=== PATIENT | female | born 1945 | race Caucasian/White ===

== ENCOUNTER 2019-07-23 08:56 | Outpatient (CLI) | payer MEDICARE ==
--- NOTE | 2019-07-23 12:20 | MRI ---
LUMBAR SPINE MRI WITHOUT IV CONTRAST: Date: 07/23/19 HISTORY: Lumbar stenosis with neurogenic claudication, sciatic pain, primarily right leg. COMPARISON: 09/05/16. FINDINGS: Generalized disc desiccation changes, and ligament and facet hypertrophic changes. Evidence for postsurgical changes at L3-L4. Visualized thoracic spine and cord appear unremarkable. At T12-L1, there is no significant central canal or lateral recess or foraminal stenosis. At L1-L2, there is mild disc bulging with ligament and facet hypertrophic changes, with very mild lat eral recess narrowing. At L2-L3, there is moderate central canal and left lateral recess stenosis with moderate left foramin al stenosis. At L3-L4, there is a Grade I anterolisthesis with severe central canal, lateral recess, and bilateral foraminal stenosis, possibly very slightly progressive from the prior study. Disc bulging at L4-L5 with moderate right foraminal stenosis and mild left foraminal stenosis. At L5-S1, there is a small annular fissure, without associated stenosis. The previously noted abnormal marrow signal changes at L3-L4 have resolved. Visualized SI joints demonstrate mild degenerative changes, but no evidence for acute sacroiliitis. IMPRESSION: 1. Anterolisthesis of L3 on L4. 2. Postop changes at L3-L4. 3. Severe central canal, lateral recess, and foraminal stenosis bilaterally at L3-L4. 4. Variable severity multilevel canal, lateral recess, and foraminal stenosis at other levels as abo ve. 5. The amount of stenosis at the L3-L4 level appears minimally progressive from the prior study. POS: [facility]
== END 2019-07-23 08:57 | disposition home or self-care (01) ==
LOC: MRI 08:56
PROVIDERS: ATTEND Anesthesiology Pain Medicine
DX: M48.062 Spinal stenosis, lumbar region with neurogenic claudication (principal); M43.16 Spondylolisthesis, lumbar region; Z98.890 Other specified postprocedural states
CPT/HCPCS: 36415; 72148; 80053; 80061; 84443; 85025; 85652; 86140

== ENCOUNTER 2020-01-18 10:52 | Outpatient (CLI) | payer MEDICARE, OTHER ==
--- NOTE | 2020-01-18 12:11 | MRI ---
MRI Lower Ext Jt Rt knee WO Con HISTORY: Knee pain COMPARISON: None. FINDINGS: The anterior as well as posterior cruciate ligaments are intact. On the medial side the posterior horn is very diminutive in size there is a displaced flap type tear involving the body of the meniscus with meniscal tissue displaced into the meniscotibial recess. The diminutive size of the posterior horn is probably related to the tear extending into the posterio r horn region. On the lateral side a more horizontally oriented tear is seen extending into a truncated body of the meniscus again with a very diminutive appearance to the posterior horn, I do not appreciate any displaced fragment of meniscus in these changes and therefore this may largely be chronic in nature. There is slight prominence to the root region of the posterior horn of lateral meniscus possibly there are some displaced fragment extending into this region. The medial as well as lateral collateral ligaments and iliotibial band regions are normal. There is grade IV chondromalacia changes involving the medial facet with lesser changes involving the lateral facet of the patella. Medial lateral patellar retinaculum and quadriceps and patellar tendons are normal. Kimball's type cyst is present.. IMPRESSION: 1. Displaced flap type tear involving the posterior horn and body region of the medial meniscus. 2. More chronic appearing tear involving the lateral meniscus. There is a horizontally orientated tea r in a truncated body of the meniscus. The posterior horn is very diminutive in size, it is difficult to show any definite displaced meniscal fragment although it is possible that there is a di splaced fragment displaced into the region of the root of the posterior horn of the lateral meniscus.
== END 2020-01-18 10:53 | disposition home or self-care (01) ==
LOC: SCSMRI 10:52
PROVIDERS: ATTEND Orthopaedic Surgery
DX: M25.561 Pain in right knee (principal); S83.241A Other tear of medial meniscus, current injury, right knee, initial encounter; S83.281A Other tear of lateral meniscus, current injury, right knee, initial encounter

== ENCOUNTER 2020-07-27 15:30 | Outpatient (CLI) | payer MEDICARE, OTHER ==
--- NOTE | 2020-07-28 09:30 | RAD ---
EXAM: CHEST TWO VIEWS: 07/27/20 HISTORY: Hypertension. FINDINGS: There is some very mild increased linear and interstitial markings noted bilaterally. No confluent pn eumonia or overt edema. Heart size is normal. Mild atherosclerosis of the aorta. IMPRESSION: 1. Mild chronic changes. No confluent pneumonia, overt edema, pleural effusion, or other acute process. 2. Atherosclerosis of the aorta. POS: [facility]
== END 2020-07-27 15:31 | disposition home or self-care (01) ==
LOC: BICRAD 15:30
PROVIDERS: ATTEND Nurse Practitioner Family
DX: I10 Essential (primary) hypertension (principal); I70.0 Atherosclerosis of aorta
CPT/HCPCS: 71046

== ENCOUNTER 2020-08-24 07:49 | Outpatient (CLI) | payer MEDICARE, OTHER ==
--- NOTE | 2020-08-24 08:58 | MRI ---
MRI LUMBAR SPINE NONCONTRAST: HISTORY: Lumbar radiculopathy. Back pain. Weakness in both legs, x1-2 months. COMPARISON: 07/23/2019. FINDINGS: There is mild heterogeneity on the T1-weighted sequence suggesting a component of senescent change. T here are type II Modic changes at L2-L3. There is type I and type II Modic change at the L1-L2 level. No significant STIR hyperintensity to suggest vertebral body edema from fracture. No MR eviden ce of ligamentous injury. There is appropriate signal intensity of the visualized paraspinal muscles and solid organs. Conus medullaris terminates at the T12-L1 disc space. Spondylolisthesis: 7.8 mm of anterolisthesis of L4 3 upon L4, previously measuring 7.2 mm. There are associated bilatera l L3 pars defects. L4-L5: 2.9 mm of anterolisthesis, previously measuring 2.8 mm of anterolisthesis. L1-L2: 2.9 mm of retrolisthesis, previously 2.2 mm of retrolisthesis. T12-L1:Adequate disc hydration. No posterior disc abnormality. No significant central canal stenosis. Patent bilateral neural foramina. L1-L2:Disc desiccation with mild loss of disc space height. Broad-based disc bulge, ligament flavum t hickening and facet hypertrophy result in mild central canal stenosis. Mild to moderate bilateral neural foraminal narrowing. No significant change in the degree of central canal stenosis or degree o f neural foraminal narrowing. L2-L3:Desiccation with severe loss of disc space height, similar to the previous examination. Broad-b ased disc bulge and posterior element hypertrophy results in mild central canal stenosis. Mild right and moderate left neural foraminal narrowing. L3-L4:Desiccation with severe loss of disc space height. Moderate central canal stenosis, unchanged. Severe bilateral foraminal narrowing, similar to the previous exam. L4-L5:Desiccation with severe loss of disc space height. Broad-based disc bulge. Posterior laminectom y defect. No significant central canal stenosis. Moderate bilateral facet hypertrophy. Moderate right and mild left neural foraminal narrowing. L5-S1:Disc desiccation without significant loss of disc space height. No significant central canal st enosis. Long-standing T2 and STIR hyperintensity involving the posterior annulus is noted. Patent bilateral neural foramina. IMPRESSION: 1. Slight progression of spondylolisthesis at L1-L2, L3-L4 and L4-L5. Redemonstration of bilateral L3 pars defects. 2. Moderate central canal stenosis at L3-L4, unchanged. Severe bilateral neural foraminal narrowing a t L3-L4, unchanged. 3. Additional multilevel degenerative changes of the lumbar spine as described above. Transcribed Date/Time: 08/24/2020 9:41 AM
--- NOTE | 2020-08-24 12:14 | MRI ---
MRI OF THE PELVIS WITH AND WITHOUT CONTRAST: Date: 08/24/2020 INDICATION: History of ischial bursitis. TECHNIQUE: Multiplanar, multisequence MR images were obtained of the pelvis with and without contrast following 16 mL of MultiHance. FINDINGS: No definite abnormal fluid collection is seen overlying the ischium. There is mild tendinosis of the hamstring origins. There is mild trochanteric bursitis bilaterally. No iliopsoas bursitis is evident. No muscular atrophy is evident. No enlarged lymph nodes are present. No free fluid is evident in the pelvis. No acute fracture is demonstrated. There is mild degenerative change of the SI joints. 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 The uterus is surgically absent. IMPRESSION: 1. Mild tendinosis of the hamstring origins bilaterally. 2. Mild trochanteric bursitis bilaterally. 3. No iliopsoas bursitis demonstrated. POS: [facility]
[2020-08-24] MEDS ORDERED: Magnevist 469MG/ML 20 ML VIAL ONE (16:28)
== END 2020-08-24 07:50 | disposition home or self-care (01) ==
LOC: BICMRI 07:49
PROVIDERS: ATTEND Specialist
DX: M47.26 Other spondylosis with radiculopathy, lumbar region (principal); M70.70 Other bursitis of hip, unspecified hip; M70.62 Trochanteric bursitis, left hip; M70.61 Trochanteric bursitis, right hip; M76.899 Other specified enthesopathies of unspecified lower limb, excluding foot; M67.952 Unspecified disorder of synovium and tendon, left thigh; M67.951 Unspecified disorder of synovium and tendon, right thigh; M43.16 Spondylolisthesis, lumbar region; M48.061 Spinal stenosis, lumbar region without neurogenic claudication
CPT/HCPCS: 72148; 72197; A9579

== ENCOUNTER 2020-11-15 12:51 | Outpatient (CLI) | payer MEDICARE, OTHER ==
--- NOTE | 2020-11-15 13:33 | ULT ---
EXAM: Right lower extremity venous Doppler HISTORY: Right leg pain. FINDINGS: Grayscale, color-flow, Doppler evaluation, spectral analysis of the right lower extremity venous stru ctures is performed with 2-D imaging. The right common femoral, superficial femoral, popliteal, posterior tibial, proximal greater saphenous and profunda femoral veins are imaged. There is normal luminal compressibility, flow, and augmentation in the visualized deep venous structu res of the right lower extremity. There is an oblong shaped anechoic structure seen in the popliteal fossa which measures 4.1 cm x 1.9 cm x 1.8 cm. Small amount of echogenic material is seen likely due to small amount of debris within presumed Kimball's cyst. Color flow evaluation does not demonstrate flow in this structure. IMPRESSION: 1. No evidence of a deep vein thrombosis in the visualized deep venous structures right lower extremi ty. 2. 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
--- NOTE | 2020-11-15 14:51 | RAD ---
EXAM: 2 views of the right tibia/fibula HISTORY: Leg pain COMPARISON: None FINDINGS: There is no evidence of acute fracture or dislocation. Mild pretibial soft tissue swelling is seen. No degenerative changes are seen in the ankle. Mild degenerative changes are seen in the knee. IMPRESSION: No evidence of acute osseous abnormality.
--- NOTE | 2020-11-15 15:15 | MRI ---
MR OF THE RIGHT KNEE WITHOUT CONTRAST INDICATION: Severe right knee pain TECHNIQUE: Axial and coronal PD fat sat, sagittal T2 fat sat, sagittal PD turbo spin echo and T1 landy nal images were obtained of the right knee. COMPARISON: MR of the right knee dated January 18, 2020 FINDINGS: Joint effusion: Moderate to large Semimembranosus-medial gastrocnemius popliteal cyst: Moderate to large Ligaments: There is some mild intrinsic degeneration involving the ACL. PCL, MCL and LCLC are intact. Extensor mechanism: Intact. Menisci: The horizontally oriented radial tear involving the posterior horn and body of the medial me niscus with a displaced meniscal flap protruding from the inferior margin of the medial meniscal body into the inferior aspect of the medial gutter is again seen. The extent of the tear appears slig htly more pronounced than on the prior exam. There has been interval development of a full-thickness obliquely oriented radial tear involving the posterior horn and posterior body of the lateral meniscus with a displaced flap extending into the superior aspect of the lateral gutter from the anterior margin of the lateral meniscal body. There is extrusion of the lateral meniscus. Th is is best seen on image 7 of series 8 and image 11 of series 9. Articular cartilage: Since the comparison examination there is been progressive full-thickness articu lar cartilage thinning involving the lateral tibial plateau and lateral femoral condyle with subchondral sclerosis and subchondral cyst formation involving the lateral tibial plateau. There is a subchondral sclerosis are also seen involving the lateral and posterior margin of the lateral femoral condyle. There is reactive marrow edema of the lateral femoral condyle and lateral tibial osmin teau. Small marginal osteophytes affecting the medial femoral tibial and patellofemoral compartments. There is moderate to severe multifocal chondrosis involving the patellofemoral compartm ent. There is diffuse moderate narrowing of the articular cartilage of the medial femoral tibial joint compartment. Osseous structures: Mild marrow edema seen involving the lateral femoral tibial and lateral tibial pl ateau. Small amount of reactive edema seen underlying the tibial spines. Popliteus and IT band: Normal. IMPRESSION: 1. Interval development of a full-thickness radial tear involving the posterior horn and posterior roger dy of the lateral meniscus with a displaced meniscal flap extending superiorly into the lateral gutter from the anterior margin of the lateral meniscal body. 2. Worsening horizontally oriented radial tear involving the posterior horn and body of the medial me niscus with a displaced meniscal flap protruding into the inferior margin of the medial gutter. 3. Accelerated [id number] osteoarthrosis, most severely affecting the lateral femoral tibial co mpartment where there has been interval development of subchondral sclerosis and subchondral cyst formation involving the lateral tibial plateau. There is reactive marrow edema involving the lateral femoral condyle and lateral tibial plateau. 4. Moderate to large semimembranosus-medial gastrocnemius popliteal cyst.
== END 2020-11-15 12:52 | disposition home or self-care (01) ==
LOC: BICULT 12:51
PROVIDERS: ATTEND Internal Medicine
DX: M25.561 Pain in right knee (principal); M79.604 Pain in right leg; I80.01 Phlebitis and thrombophlebitis of superficial vessels of right lower extremity

== ENCOUNTER 2021-02-14 09:49 | Outpatient (CLI) | payer MEDICARE | END 2021-02-14 09:50 | disposition home or self-care (01) | LOC: BICMAMMO 09:49 | PROVIDERS: ATTEND Orthopaedic Surgery | DX: Z13.820 Encounter for screening for osteoporosis (principal); N95.9 Unspecified menopausal and perimenopausal disorder; M85.80 Other specified disorders of bone density and structure, unspecified site | CPT/HCPCS: 77080 ==

== ENCOUNTER 2021-03-22 12:27 | Outpatient (CLI) | payer MEDICARE | END 2021-03-22 12:28 | disposition home or self-care (01) | LOC: BICRAD 12:27 | PROVIDERS: ATTEND Orthopaedic Surgery | DX: M54.5 Low back pain (principal); M47.816 Spondylosis without myelopathy or radiculopathy, lumbar region; Z98.890 Other specified postprocedural states | CPT/HCPCS: 72100 ==

== ENCOUNTER 2021-04-18 12:33 | Outpatient (CLI) | payer MEDICARE | END 2021-04-18 12:34 | disposition home or self-care (01) | LOC: BICRAD 12:33 | PROVIDERS: ATTEND Orthopaedic Surgery | DX: M25.561 Pain in right knee (principal); M54.5 Low back pain; M47.816 Spondylosis without myelopathy or radiculopathy, lumbar region | CPT/HCPCS: 72100 ==

== ENCOUNTER 2021-05-19 08:40 | Outpatient (CLI) | payer MEDICARE | END 2021-05-19 08:41 | disposition home or self-care (01) | LOC: BICRAD 08:40 | PROVIDERS: ATTEND Internal Medicine Pulmonary Disease | DX: J90 Pleural effusion, not elsewhere classified (principal) | CPT/HCPCS: 71046 ==

== ENCOUNTER 2023-12-06 11:19 | Outpatient (CLI) | payer MEDICARE | END 2023-12-06 11:20 | disposition home or self-care (01) | LOC: BICRAD 11:19 | PROVIDERS: ATTEND Orthopaedic Surgery | DX: M54.50 Low back pain, unspecified (principal) | CPT/HCPCS: 72100 ==

== ENCOUNTER 2023-12-24 11:41 | Outpatient (CLI) | payer MEDICARE | END 2023-12-24 11:42 | disposition home or self-care (01) | LOC: SCSMRI 11:41 | PROVIDERS: ATTEND Orthopaedic Surgery | DX: M47.22 Other spondylosis with radiculopathy, cervical region (principal); E04.1 Nontoxic single thyroid nodule | CPT/HCPCS: 72141 ==

== ENCOUNTER 2024-09-24 09:09 | Outpatient (CLI) | payer MEDICARE, OTHER | END 2024-09-24 09:10 | disposition home or self-care (01) | LOC: BICRAD 09:09 | PROVIDERS: ATTEND Family Medicine | DX: M17.12 Unilateral primary osteoarthritis, left knee (principal); M25.361 Other instability, right knee; M25.362 Other instability, left knee; M25.562 Pain in left knee; M25.561 Pain in right knee; Z96.651 Presence of right artificial knee joint ==

== ENCOUNTER 2024-12-16 19:35 | Emergency (ER) | payer MEDICARE | END 2024-12-16 22:00 | disposition home or self-care (01) | LOC: ERS 19:35 | DX: S06.9X9A Unspecified intracranial injury with loss of consciousness of unspecified duration, initial encounter (principal); S00.03XA Contusion of scalp, initial encounter; I10 Essential (primary) hypertension; Z96.651 Presence of right artificial knee joint; W01.198A Fall on same level from slipping, tripping and stumbling with subsequent striking against other object, initial encounter | CPT/HCPCS: 70450 ==

== ENCOUNTER 2025-11-05 10:37 | Outpatient (CLI) | payer MEDICARE | END 2025-11-05 10:38 | disposition home or self-care (01) | LOC: BICMRI 10:37 | PROVIDERS: ATTEND Specialist | DX: M75.112 Incomplete rotator cuff tear or rupture of left shoulder, not specified as traumatic (principal); M19.012 Primary osteoarthritis, left shoulder; M89.8X1 Other specified disorders of bone, shoulder ==